=== PATIENT | male | born 1980 | race Two or more races ===

== ENCOUNTER 2020-08-03 13:33 | Emergency (ER) | payer SELFPAY ==
[~2020-08-03] VITALS: Ht 167.6 cm; Wt 80.3 kg
[2020-08-03] MEDS ORDERED: KETOROLAC TROMETHAMINE INJ 30 MG/ML VIAL ONE (14:17)
[2020-08-03] MEDS: KETOROLAC TROMETHAMINE INJ 30 MG/ML VIAL IM ONE (14:21)
--- NOTE | 2020-08-03 14:21 | NUR ---
us tech at bedside.
[2020-08-03] MEDS ORDERED: IBUP-1957 PO (14:41)
[2020-08-03] MEDS ORDERED: CLIN300C12 PO (14:41)
--- NOTE | 2020-08-03 15:11 | NUR ---
PATIENT AMBULATORY WITH STEADY GAIT. PATIENT A/OX4, BREATHING EVEN AND UNLABORED, NO SOB NOTED. NEEDS ATTENDED. Translated by Adilene in french. Patient discharged to home in stable condition. Written and verbal after care instructions given. Patient verbalizes understanding of instruction.
[2020-08-03 15:13] VITALS: BP 141/92
== END 2020-08-03 15:14 | disposition home or self-care (01) ==
LOC: ER 13:38
DX: I80.02 Phlebitis and thrombophlebitis of superficial vessels of left lower extremity (principal); L03.116 Cellulitis of left lower limb; I10 Essential (primary) hypertension; Z79.899 Other long term (current) drug therapy
CPT/HCPCS: 73564; 73590; 93971; 96372; 99284; J1885